=== PATIENT | female | born 1985 | race Caucasian/White ===

== ENCOUNTER 2018-02-24 05:44 | Day surgery (SDC) | payer MEDICAID ==
[2018-02-17 12:19] LABS: BASOPHILS % (AUTO) 0.7 % (0-1); EOSINOPHILS # (AUTO) 0.1 X10'3 (0-0.9); EOSINOPHILS % (AUTO) 0.9 % (0-6); LYMPHOCYTES # (AUTO) 2.3 X10'3 (1.1-4.8); LYMPHOCYTES % (AUTO) 37.1 % (21-51); MEAN CORPUSCULAR HEMOGLOBIN 30.6 PG (27.0-31.0); MEAN CORPUSCULAR HGB CONC 33.8 % (33.0-36.5); MEAN CORPUSCULAR VOLUME 90.4 FL (78-98); MEAN PLATELET VOLUME 9.8 FL (7.4-10.4); MONOCYTES # (AUTO) 0.6 X10'3 (0-0.9); MONOCYTES % (AUTO) 9.1 % (2-12); NEUTROPHILS # (AUTO) 3.3 X10'3 (1.8-7.7); NEUTROPHILS % (AUTO) 52.2 % (42-75); PRE OP HEMATOCRIT 41.7 % (35.0-45.0); PRE OP HEMOGLOBIN 14.1 g/dL (12.0-16.0); PRE OP PLATELET COUNT 307 X10'3 (140-440); RED BLOOD COUNT 4.61 X10'6 (4.20-5.60); RED CELL DISTRIBUTION WIDTH 12.9 % (11.5-14.5)
[2018-02-17 12:51] LABS: HCG SERUM QL NEGATIVE
[2018-02-24] VITALS (7 sets, daily range): BP systolic 104–138; BP diastolic 58–74
[~2018-02-24] VITALS: Ht 162.6 cm; Wt 72.1 kg
[~2018-02-24 05:44] MED LIST: NO HOME MEDS; cefazolin/dext.iso 2gm/100 ML IV ONE; famotidine 20mg tablet PO ONE; ringers solution, lacted 1,000 ML IV SCH
[2018-02-24] MEDS ORDERED: LIDOcaine 1% (10mg/ml) 2ml vial ONE (06:14)
[2018-02-24] MEDS ORDERED: BUPIVAcaine/PF 2.5mg/ml (0.25%) 10ml vial ONE (06:50)
[2018-02-24] MEDS ORDERED: epiNEPHrine 1 mg/ml inj ONE (06:50)
[2018-02-24] MEDS ORDERED: ondansetron/PF 4mg/2ml inj ONE (08:02)
[2018-02-24] MEDS ORDERED: rocuronium 10mg/ml inj IV ONE (08:02)
[2018-02-24] MEDS ORDERED: sevoflurane 250ml liquid IH ONE (08:02)
[2018-02-24] MEDS ORDERED: fentaNYL/PF 50MCG/1 ML 2ML syringe ONE (08:07)
[2018-02-24] MEDS ORDERED: midazolam 2 mg/2 ml injection ONE (08:07)
[2018-02-24] MEDS ORDERED: LIDOcaine 2% (20mg/ml) 5ml vial ONE (08:09)
[2018-02-24] MEDS ORDERED: dexamethasone sod phosphate 4mg/ml inj. ONE (08:14)
[2018-02-24] MEDS ORDERED: propofol inj 20 ML IV ONE (08:14)
[2018-02-24] MEDS ORDERED: ketorolac trometh. 30mg/ml inj. ONE (08:14)
[2018-02-24] MEDS ORDERED: ringers solution, lacted 1,000 ML IV SCH (08:31)
[2018-02-24] MEDS ORDERED: meperidine/PF 25mg/ml syringe IV PRN ×3 (08:35)
[2018-02-24] MEDS ORDERED: proCHLORperazine 10 MG/2 ml inj IV PRN (08:35)
[2018-02-24] MEDS ORDERED: ondansetron/PF 4mg/2ml inj IV PRN (08:35)
[2018-02-24] MEDS ORDERED: morphine 4 MG/ML inj SYRINge IV PRN ×2 (08:35)
[2018-02-24] MEDS ORDERED: glycopyrrolate 0.2mg/ml inj ONE (08:37)
[2018-02-24] MEDS ORDERED: neostigmine methylsulfate 1 MG/ML 10ml vial ONE (08:37)
== END 2018-02-24 09:52 | disposition home or self-care (01) ==
LOC: PAS 05:44
PROVIDERS: ATTEND Obstetrics & Gynecology
DX: Z30.2 Encounter for sterilization (principal); Z88.5 Allergy status to narcotic agent; Z87.442 Personal history of urinary calculi; Z98.890 Other specified postprocedural states
CPT/HCPCS: 36415; 58670; 84703; 85025; A6258; A6402; J0171; J0690; J1100; J1885; J2001; J2250; J2704; J2710; J3010; J3490; J7120; A7000; J2405